=== PATIENT | female | born 1980 | race Caucasian/White ===

== ENCOUNTER → 2019-04-17 | Emergency (ER) | payer SELFPAY ==
--- NOTE | 2019-04-17 14:00 | NUR ---
PATIENT CALLED IN TRIAGE, DOES NOT WANT TO BE SEEN BY THE DOCTOR. "I'M HAVING PANIC ATTACKS BECAUSE I'M HERE"
== END | disposition left against medical advice (07) ==
LOC: ER 13:37
DX: Z53.21 Procedure and treatment not carried out due to patient leaving prior to being seen by health care provider (principal)